=== PATIENT | female | born 1995 ===

== ENCOUNTER → 2019-06-08 | Outpatient (CLI) | payer BC ==
[2019-06-10 15:09] LABS: HPV 16 Negative (Negative); HPV 18 Negative (Negative); HPV OTHER HR TYPES Negative (Negative)
== END | disposition home or self-care (01) ==
LOC: LAB 15:03 → LAB SHORT 15:03
PROVIDERS: Family Medicine
DX: Z01.419 Encounter for gynecological examination (general) (routine) without abnormal findings (principal)
CPT/HCPCS: 87624; G0123

== ENCOUNTER → 2020-10-22 | Outpatient (CLI) | payer BC ==
[2020-10-24 04:08] LABS: CHLAMYDIA TRACHOMATIS, NAA Negative (Negative)
== END | disposition home or self-care (01) ==
LOC: LAB 11:30 → LAB SHORT 11:30
PROVIDERS: Family Medicine
DX: Z34.01 Encounter for supervision of normal first pregnancy, first trimester (principal)
CPT/HCPCS: 87491; 87591

== ENCOUNTER → 2021-05-07 | Outpatient (CLI) | payer BC | END | disposition home or self-care (01) | LOC: LAB 15:44 → LAB SHORT 15:44 | DX: Z39.1 Encounter for care and examination of lactating mother (principal) | CPT/HCPCS: 87081; 87150 ==

== ENCOUNTER 2021-05-31 06:03 | Inpatient (IN) | payer BC ==
[~2021-05-31] VITALS: Ht 177.8 cm; Wt 84.0 kg
[2021-05-31] MEDS ORDERED: PRENATAL TABLE1 EAC2 (09:11)
[2021-05-31 09:27] LABS: BASOPHILS ABSOLUTE AUTO 0.02 K/mm3 (0.00-0.23); BASOPHILS PERCENT AUTO 0 % (0-2); EOSINOPHILS ABSOLUTE AUTO 0.02 K/mm3 (0.00-0.68); EOSINOPHILS PERCENT AUTO 0 % (0-6); Hematocrit 34.9 % (33.0-51.0); Hemoglobin 12.1 g/dL (11.5-16.0); IMMATURE GRAN ABSOLUTE AUTO 0.05 K/mm3 (0.00-0.10); IMMATURE GRAN PERCENT AUTO 0 % (0-1); LYMPHOCYTES ABSOLUTE AUTO 1.57 K/mm3 (0.84-5.20); LYMPHOCYTES PERCENT AUTO 13 % (21-46); MONOCYTES PERCENT AUTO 6 % (4-13); Mean Corpuscular HGB 31.9 pg (26.0-34.0); Mean Corpuscular HGB Conc 34.7 g/dL (31.5-36.5); Mean Corpuscular Volume 92 fL (80-100); Mean Platelet Volume 11.4 fL (9.1-12.4); NEUTROPHILS ABSOLUTE AUTO 9.53 K/mm3 (1.96-9.15); NEUTROPHILS PERCENT AUTO 80 % (41-73); Platelet Count 213 K/mm3 (150-400); RDW Coefficient Variation 12.7 % (11.7-14.2); RDW Standard Deviation 42.6 fL (35.1-46.3); Red Blood Cell Count 3.79 M/mm3 (3.80-5.20); White Blood Cell Count 11.89 K/mm3 (4.00-11.30)
[2021-06-01 05:27] LABS: BASOPHILS ABSOLUTE AUTO 0.02 K/mm3 (0.00-0.23); BASOPHILS PERCENT AUTO 0 % (0-2); EOSINOPHILS ABSOLUTE AUTO 0.02 K/mm3 (0.00-0.68); EOSINOPHILS PERCENT AUTO 0 % (0-6); Hematocrit 28.6 % (33.0-51.0); Hemoglobin 9.7 g/dL (11.5-16.0); IMMATURE GRAN ABSOLUTE AUTO 0.06 K/mm3 (0.00-0.10); IMMATURE GRAN PERCENT AUTO 1 % (0-1); LYMPHOCYTES ABSOLUTE AUTO 1.56 K/mm3 (0.84-5.20); LYMPHOCYTES PERCENT AUTO 12 % (21-46); MONOCYTES ABSOLUTE AUTO 1.12 K/mm3 (0.16-1.47); MONOCYTES PERCENT AUTO 9 % (4-13); Mean Corpuscular HGB 32.1 pg (26.0-34.0); Mean Corpuscular HGB Conc 33.9 g/dL (31.5-36.5); Mean Corpuscular Volume 95 fL (80-100); Mean Platelet Volume 10.6 fL (9.1-12.4); NEUTROPHILS ABSOLUTE AUTO 9.79 K/mm3 (1.96-9.15); NEUTROPHILS PERCENT AUTO 78 % (41-73); Platelet Count 164 K/mm3 (150-400); RDW Coefficient Variation 12.9 % (11.7-14.2); RDW Standard Deviation 44.5 fL (35.1-46.3); Red Blood Cell Count 3.02 M/mm3 (3.80-5.20); White Blood Cell Count 12.57 K/mm3 (4.00-11.30)
[2021-06-01] MEDS ORDERED: IBUP800 PO (12:43)
[2021-06-01] MEDS ORDERED: ACET500 PO (12:44)
[2021-06-01] MEDS ORDERED: DOCU100 PO (12:44)
--- NOTE | 2021-06-01 15:24 | NUR ---
[id number] DISCHAGED TO HOME WITH NB
== END 2021-06-01 15:18 | disposition home or self-care (01) | DRG 806 ==
LOC: OBS 06:03 → BC 06:06 → OBS 08:58 → BC 08:59
PROVIDERS: ADMIT Obstetrics & Gynecology
PROC: 10E0XZZ Delivery of Products of Conception, External Approach (ICD-10-PCS; principal; 2021-05-31)
PROC: 10907ZC Drainage of Amniotic Fluid, Therapeutic from Products of Conception, Via Natural or Artificial Opening (ICD-10-PCS; 2021-05-31)
PROC: 0UQGXZZ Repair Vagina, External Approach (ICD-10-PCS; 2021-05-31)
PROC: 00HU33Z Insertion of Infusion Device into Spinal Canal, Percutaneous Approach (ICD-10-PCS; 2021-05-31)
PROC: 3E0R3BZ Introduction of Anesthetic Agent into Spinal Canal, Percutaneous Approach (ICD-10-PCS; 2021-05-31)
DX: O99.03 Anemia complicating the puerperium (principal); D62 Acute posthemorrhagic anemia; Z37.0 Single live birth; O69.81X0 Labor and delivery complicated by cord around neck, without compression, not applicable or unspecified; Z3A.39 39 weeks gestation of pregnancy; O75.89 Other specified complications of labor and delivery
CPT/HCPCS: 36415; 51702; 59025; 85025; 86850; 86900; 86901; A9270; J1200; J1885; J2001; J2210; J2405; J2590; J3010; J7120

== ENCOUNTER → 2022-05-27 | Outpatient (CLI) | payer BC ==
[~2022-05-27] MED LIST: ACET500 PO; DOCU100 PO; IBUP800 PO; PRENATAL TABLE1 EAC2
[2022-05-27 11:57] LABS: Source, Urine Clean Catch
[2022-05-27 12:37] LABS: Bacteria Not Seen /hpf; Red Blood Cells, Urine Not Seen /hpf (0-2); Squamous Epithelial Cells Few /hpf (Few); White Blood Cells, Urine 0-2 /hpf (0-5)
== END ==
LOC: LAB 11:55 → LAB SHORT 11:55
PROVIDERS: Advanced Practice Midwife
DX: Z34.81 Encounter for supervision of other normal pregnancy, first trimester (principal); Z3A.00 Weeks of gestation of pregnancy not specified
CPT/HCPCS: 81015

== ENCOUNTER → 2022-11-11 | Outpatient (CLI) | payer BC | END | disposition home or self-care (01) | LOC: LAB 12:00 → LAB SHORT 12:00 | DX: O09.893 Supervision of other high risk pregnancies, third trimester (principal); Z3A.00 Weeks of gestation of pregnancy not specified | CPT/HCPCS: 87081; 87150 ==

== ENCOUNTER 2022-12-06 05:27 | Inpatient (IN) | payer BC ==
[2022-12-06] VITALS (47 sets, daily range): BP systolic 80–121; BP diastolic 49–74
[~2022-12-06] VITALS: Ht 175.3 cm; Wt 82.1 kg
[2022-12-06 06:27] LABS: BASOPHILS ABSOLUTE AUTO 0.03 K/mm3 (0.00-0.23); BASOPHILS PERCENT AUTO 0 % (0-2); EOSINOPHILS ABSOLUTE AUTO 0.11 K/mm3 (0.00-0.68); EOSINOPHILS PERCENT AUTO 2 % (0-6); Hematocrit 34.9 % (33.0-51.0); Hemoglobin 12.2 g/dL (11.5-16.0); IMMATURE GRAN ABSOLUTE AUTO 0.03 K/mm3 (0.00-0.10); IMMATURE GRAN PERCENT AUTO 0 % (0-1); LYMPHOCYTES ABSOLUTE AUTO 1.84 K/mm3 (0.84-5.20); LYMPHOCYTES PERCENT AUTO 26 % (21-46); MONOCYTES ABSOLUTE AUTO 0.68 K/mm3 (0.16-1.47); MONOCYTES PERCENT AUTO 10 % (4-13); Mean Corpuscular HGB 32.8 pg (26.0-34.0); Mean Corpuscular Volume 94 fL (80-100); Mean Platelet Volume 10.5 fL (9.1-12.4); NEUTROPHILS ABSOLUTE AUTO 4.37 K/mm3 (1.96-9.15); NEUTROPHILS PERCENT AUTO 62 % (41-73); Platelet Count 211 K/mm3 (150-400); RDW Standard Deviation 44.5 fL (35.1-46.3); Red Blood Cell Count 3.72 M/mm3 (3.80-5.20); White Blood Cell Count 7.06 K/mm3 (4.00-11.30)
[2022-12-07 04:18] VITALS: BP 92/54
[2022-12-07 07:21] VITALS: BP 104/61
[2022-12-07] MEDS ORDERED: IBUP800 PO (08:04)
[2022-12-07 12:58] VITALS: BP 100/57
== END 2022-12-07 15:22 | disposition home or self-care (01) | DRG 807 ==
LOC: OBS 05:27 → BC 05:28 → OBS 05:48 → BC 05:50
PROVIDERS: ADMIT Advanced Practice Midwife
PROC: 10E0XZZ Delivery of Products of Conception, External Approach (ICD-10-PCS; principal; 2022-12-06)
PROC: 0HQ9XZZ Repair Perineum Skin, External Approach (ICD-10-PCS; 2022-12-06)
PROC: 3E0R3BZ Introduction of Anesthetic Agent into Spinal Canal, Percutaneous Approach (ICD-10-PCS; 2022-12-06)
PROC: 00HU33Z Insertion of Infusion Device into Spinal Canal, Percutaneous Approach (ICD-10-PCS; 2022-12-06)
DX: O42.02 Full-term premature rupture of membranes, onset of labor within 24 hours of rupture (principal); Z37.0 Single live birth; Z3A.38 38 weeks gestation of pregnancy; Z79.899 Other long term (current) drug therapy; O69.1XX0 Labor and delivery complicated by cord around neck, with compression, not applicable or unspecified; O70.0 First degree perineal laceration during delivery
CPT/HCPCS: 36415; 51702; 59025; 85025; 86850; 86900; 86901; A9270; J1885; J2210; J7120

== ENCOUNTER → 2024-06-13 | Outpatient (CLI) | payer BC | LOC: LAB SHORT 10:28 → LAB 10:28 | DX: O09.93 Supervision of high risk pregnancy, unspecified, third trimester (principal) | CPT/HCPCS: 87081; 87150 ==

== ENCOUNTER 2024-07-05 12:06 | Inpatient (IN) | payer BC ==
[2024-07-05] VITALS (13 sets, daily range): BP systolic 98–122; BP diastolic 56–79
[~2024-07-05] VITALS: Ht 175.3 cm; Wt 84.0 kg
[2024-07-05] MEDS ORDERED: Carboprost Tromethamine 250 MCG/ML 1ML Amp IM PRN (14:55)
[2024-07-05] MEDS ORDERED: Acetaminophen 500 MG Tab PO PRN (14:55)
[2024-07-05] MEDS ORDERED: Oxytocin 10 Unit / ML Vial IM PRN (14:55)
[2024-07-05] MEDS ORDERED: Misoprostol 200 MCG Tab BC PRN (14:55)
[2024-07-05] MEDS ORDERED: Ondansetron HCl 2 MG / ML 2ML Vial IV PRN (14:55)
[2024-07-05] MEDS ORDERED: Misoprostol 200 MCG Tab PR PRN ×2 (14:55→17:50)
[2024-07-05] MEDS ORDERED: OXYTOCIN/RINGER'S LACTATE 500 ML IV PRN (14:55)
[2024-07-05] MEDS ORDERED: Lactated Ringer's 1,000 ML IV PRN (14:55)
[2024-07-05] MEDS ORDERED: Methylergonovine Maleate 0.2MG / ML 1ML Amp IM PRN ×2 (14:55→17:50)
[2024-07-05] MEDS ORDERED: ePHEDrine Sulfate 50 MG/ML 1ML Injection XX PRN (15:00)
[2024-07-05] MEDS ORDERED: FentaNYL 2mcg/ml-Bup 0.1% Epd 250 ML EPI PRN (15:00)
[2024-07-05] MEDS ORDERED: Calcium Carbonate 500 MG Tab Chew PO SCH (15:00)
[2024-07-05] MEDS ORDERED: Lactated Ringer's 1,000 ML IV SCH ×3 (15:00→18:00)
[2024-07-05] MEDS ORDERED: Tranexamic Acid 100 ML IV SCH (15:05)
[2024-07-05 15:22] LABS: BASOPHILS ABSOLUTE AUTO 0.03 K/mm3 (0.00-0.23); BASOPHILS PERCENT AUTO 0 % (0-2); EOSINOPHILS ABSOLUTE AUTO 0.05 K/mm3 (0.00-0.68); EOSINOPHILS PERCENT AUTO 0 % (0-6); Hematocrit 35.1 % (33.0-51.0); Hemoglobin 12.2 g/dL (11.5-16.0); IMMATURE GRAN ABSOLUTE AUTO 0.04 K/mm3 (0.00-0.10); IMMATURE GRAN PERCENT AUTO 0 % (0-1); LYMPHOCYTES ABSOLUTE AUTO 1.86 K/mm3 (0.84-5.20); LYMPHOCYTES PERCENT AUTO 15 % (21-46); MONOCYTES ABSOLUTE AUTO 0.61 K/mm3 (0.16-1.47); MONOCYTES PERCENT AUTO 5 % (4-13); Mean Corpuscular HGB 31.9 pg (26.0-34.0); Mean Corpuscular HGB Conc 34.8 g/dL (31.5-36.5); Mean Corpuscular Volume 92 fL (80-100); Mean Platelet Volume 10.8 fL (9.1-12.4); NEUTROPHILS ABSOLUTE AUTO 9.49 K/mm3 (1.96-9.15); NEUTROPHILS PERCENT AUTO 79 % (41-73); Platelet Count 242 K/mm3 (150-400); RDW Coefficient Variation 12.5 % (11.7-14.2); RDW Standard Deviation 41.4 fL (35.1-46.3); Red Blood Cell Count 3.82 M/mm3 (3.80-5.20); White Blood Cell Count 12.08 K/mm3 (4.00-11.30)
[2024-07-05] MEDS ORDERED: Lanolin Cream TOP PRN (17:50)
[2024-07-05] MEDS ORDERED: Acetaminophen 325 MG TABLET PO PRN (17:50)
[2024-07-05] MEDS ORDERED: OXYTOCIN/RINGER'S LACTATE 500 ML IV SCH (17:55)
[2024-07-05] MEDS ORDERED: Ketorolac Tromethamine 30mg Vial IV PRN (17:55)
[2024-07-05] MEDS ORDERED: Benzocaine Topical Anesthetic Spray 60GM TOP PRN (17:55)
[2024-07-05] MEDS ORDERED: Ibuprofen 400 MG Tab PO PRN (17:55)
[2024-07-05] MEDS ORDERED: Witch Hazel/Glycerin PADS TOP PRN (17:55)
[2024-07-05] MEDS ORDERED: Docusate Sodium 100 MG Cap PO PRN (17:55)
--- NOTE | 2024-07-05 18:49 | NUR ---
LARGE AMOUNT OF LOCHIA NOTED WITH CLOTS WITH FUNDAL RUB. METHERGINE GIVEN
[2024-07-05] MEDS ORDERED: Methylergonovine Maleate 0.2MG / ML 1ML Amp IM ONE (20:51)
[2024-07-06 02:16] VITALS: BP 100/59
--- NOTE | 2024-07-06 02:20 | NUR ---
pt is sitting up feeding baby.
[2024-07-06 05:51] VITALS: BP 108/52
[2024-07-06] MEDS ORDERED: Prenatal Vit/FE Fumarate/FA 1 Tab PO SCH (09:00)
[2024-07-06 10:00] VITALS: BP 117/66
[2024-07-06 13:47] VITALS: BP 110/71
== END 2024-07-06 18:21 | disposition home or self-care (01) | DRG 807 ==
LOC: OBS 12:06 → BC 12:06 → OBS 14:47 → BC 14:48
PROVIDERS: ADMIT Advanced Practice Midwife
PROC: 10E0XZZ Delivery of Products of Conception, External Approach (ICD-10-PCS; principal; 2024-07-05)
PROC: 10907ZC Drainage of Amniotic Fluid, Therapeutic from Products of Conception, Via Natural or Artificial Opening (ICD-10-PCS; 2024-07-05)
PROC: 0UQMXZZ Repair Vulva, External Approach (ICD-10-PCS; 2024-07-05)
PROC: 4A1HXCZ Monitoring of Products of Conception, Cardiac Rate, External Approach (ICD-10-PCS; 2024-07-05)
DX: O43.193 Other malformation of placenta, third trimester (principal); Z37.0 Single live birth; Z3A.39 39 weeks gestation of pregnancy; O69.81X0 Labor and delivery complicated by cord around neck, without compression, not applicable or unspecified; O71.82 Other specified trauma to perineum and vulva
CPT/HCPCS: 36415; 85025; 86850; 86900; 86901; A9270; J1885; J2210